=== PATIENT | male | born 1950 | race African-American/Black ===

== ENCOUNTER → 2016-07-30 | Outpatient (CLI) | payer MEDICARE, OTHER | LOC: RAD 11:06 | PROVIDERS: ATTEND Internal Medicine | DX: M25.511 Pain in right shoulder (principal) ==

== ENCOUNTER 2016-10-14 07:50 | Day surgery (SDC) | payer MEDICARE, OTHER ==
[2016-10-07 10:01] LABS: ABSOLUTE EOSINOPHILS # (AUTO) 0.1 10^3/uL (0.0-0.6); ABSOLUTE LYMPHOCYTES (AUTO) 1.5 10^3/uL (0.5-4.7); ABSOLUTE MONOCYTES (AUTO) 0.6 10^3/uL (0.1-1.4); ABSOLUTE NEUT (AUTO) 4.1 10^3/uL (1.7-8.2); BASOPHILS % (AUTO) 0.4 % (0-2); EOSINOPHILS % (AUTO) 2.1 % (0-6); HEMATOCRIT 32.2 % (37.9-51.0); HEMOGLOBIN 10.4 g/dL (13.5-17.0); LYMPHOCYTES % (AUTO) 23.1 % (13-45); MEAN CORPUSCULAR HEMOGLOBIN 24.8 pg (27.0-33.4); MEAN CORPUSCULAR HGB CONC 32.2 g/dL (32.0-36.0); MEAN CORPUSCULAR VOLUME 77 fl (80-97); MONOCYTES % (AUTO) 10.1 % (3-13); RED BLOOD COUNT 4.19 10^6/uL (4.35-5.55); SEGMENTED NEUTROPHILS % (AUTO) 64.3 % (42-78); WHITE BLOOD COUNT 6.3 10^3/uL (4.0-10.5)
[2016-10-07 10:16] LABS: ANION GAP 12 (5-19); BLOOD UREA NITROGEN 9 mg/dL (7-20); CALCIUM 9.3 mg/dL (8.4-10.2); CARBON DIOXIDE 28 mmol/L (22-30); CHLORIDE 104 mmol/L (98-107); CREATININE RESULT 1.14 mg/dL (0.52-1.25); GLUCOSE 129 mg/dL (75-110); POTASSIUM 3.9 mmol/L (3.6-5.0); SODIUM 144.1 mmol/L (137-145)
[2016-10-07 11:39] LABS: APPEARANCE,URINE CLEAR; BILIRUBIN,URINE NEGATIVE (NEGATIVE); GLUCOSE, URINE NEGATIVE (NEGATIVE); KETONES,URINE NEGATIVE (NEGATIVE); LEUKOCYTE ESTERASE,URINE NEGATIVE (NEGATIVE); NITRITE,URINE NEGATIVE (NEGATIVE); PROTEIN,URINE NEGATIVE (NEGATIVE); URINE SPECIFIC GRAVITY 1.011; UROBILINOGEN,URINE NEGATIVE mg/dL (<2.0)
--- NOTE | 2016-10-07 15:46 | EKG REPORT ---
SEVERITY:- ABNORMAL ECG - ATRIAL FLUTTER, A-RATE 319 NONSPECIFIC T ABNORMALITIES, INFERIOR LEADS : Confirmed by: Keily Resendez MD 07-Oct-2016 15:45:25
[~2016-10-14 07:50] MED LIST: CEFAZOLIN 2 GM/D5W RTU 2 GM/50 ML RTUPB IV PRN; LACTATED RINGERS 1000 ML IV PRN; LIDOCAINE 0.5% INJ-PF (5 MG/ML) 50 ML SDV SUBCUT PRN
[2016-10-14] MEDS ORDERED: BUPIVACAINE HCL 0.25 % INJ/PF (2.5 MG/1 ML) 30 ML VIAL ONE (08:19)
[2016-10-14] MEDS ORDERED: EPINEPHRINE INJ/PF 1 MG/1 ML AMPULE ONE (08:19)
[2016-10-14] MEDS ORDERED: MORPHINE SULFATE 10 MG/ML INJ ONE (09:19)
[2016-10-14] MEDS ORDERED: FENTANYL CITRATE INJ/PF 250 MCG/5 ML AMPULE ONE (11:08)
[2016-10-14] MEDS ORDERED: MIDAZOLAM 2 MG/2 ML INJ ONE (11:09)
[2016-10-14] MEDS ORDERED: IBUPROFEN INJ 800 MG/8 ML VIAL IV ONE (11:09)
[2016-10-14] MEDS ORDERED: PROPOFOL INJ 200 MG/20 ML VIAL IV ONE (11:09)
[2016-10-14] MEDS ORDERED: DEXMEDETOMIDINE INJ 80 MCG/20 ML VIAL IV ONE (11:09)
[2016-10-14] MEDS ORDERED: EPHEDRINE SULFATE INJ 50 MG/1 ML AMPULE ONE (11:09)
[2016-10-14] MEDS ORDERED: ONDANSETRON HCL INJ/PF 4 MG/2 ML SDV IV PRN (12:43)
[2016-10-14] MEDS ORDERED: FENTANYL CITRATE INJ/PF 100 MCG/2 ML AMPUL IV PRN ×6 (12:43→15:04)
[2016-10-14] MEDS ORDERED: MORPHINE SULFATE 10 MG/ML INJ IV PRN ×2 (12:43→15:04)
[2016-10-14] MEDS ORDERED: PROMETHAZINE HCL INJ 25 MG/1 ML VIAL IV PRN ×4 (12:43→15:04)
[2016-10-14] MEDS ORDERED: DIPHENHYDRAMINE HCL 50 MG/ML VIAL IV PRN ×2 (12:43→15:04)
[2016-10-14] MEDS ORDERED: MEPERIDINE HCL/PF INJ 25 MG/1 ML DISP.SYRIN IV PRN ×2 (12:43→15:04)
[2016-10-14] MEDS ORDERED: OXYCODONE-ACETAMINOPHEN 5-325 MG TABLET PO PRN ×4 (12:43→15:04)
--- NOTE | 2016-10-14 14:16 | PDOC DISCHARGE SUMMARY ---
Discharge Summary (SDC) - Discharge Final Diagnosis: Status post right shoulder labral debridement and decompression with subpectoralis biceps tenodesis Date of Surgery: 10/14/16 Discharge Date: 10/14/16 Condition: Good Forms: ASU Anesthesia D/C Instruction, Discharge POC-Surgical Service Treatment or Instructions: Patient is instructed to follow up in 10-14 days. Patient instructed to remove dressing in 4 days then can shower and apply Band- Aids as needed. Patient to wear sling for comfort but okay to remove for shower and pendulum exercises. Pendulum exercises are instructed to be done 3 times a day ideally with breakfast, lunch, dinners and showers. Patient instructed to call if there is any signs of redness or drainage fevers or chills. Prescriptions: Oxycodone HCl/Acetaminophen [Percocet 5-325 mg Tablet] 1 - 2 tab PO ASDIR PRN # 60 tablet PRN Reason: Referrals: KESHA RODGERS MD [ACTIVE STAFF] - Discharge Diet: As Tolerated Respiratory Treatments at Home: Deep Breathing/Coughing Discharge Activity: No Driving, No Lifting/Push/Pulling Report the Following to Your Physician Immediately: Shortness of Breath, Vomiting, Fever over 101 Degrees, Unusual Bleeding, Redness, Swelling, Warmth, Drainage-Yellow, Drainage-Green, Drainage-Foul Smelling, Numbness, Seizure
[2016-10-14] MEDS ORDERED: SUCCINYLCHOLINE CHLORIDE INJ 200 MG/10 ML VIAL ONE (14:22)
[2016-10-14] MEDS ORDERED: ONDANSETRON HCL INJ/PF 4 MG/2 ML SDV ONE (14:22)
[2016-10-14] MEDS ORDERED: LIDOCAINE 2% INJ-PF (20 MG/ML) 10 ML AMPUL ONE (14:22)
[2016-10-14] MEDS ORDERED: METOCLOPRAMIDE HCL INJ/PF 10 MG/2 ML SDV ONE (14:22)
[2016-10-14] MEDS ORDERED: GLYCOPYRROLATE INJ 0.4 MG/2 ML VIAL ONE (14:22)
[2016-10-14] MEDS ORDERED: DEXAMETHASONE SOD PHOSPHATE INJ 4 MG/1 ML VIAL ONE (14:22)
--- NOTE | 2016-10-14 14:25 | Operative Report ---
Operative Report DATE OF SURGERY: 10/14/16 PREOPERATIVE DIAGNOSIS: Right rotator cuff tear and SLAP tear POSTOPERATIVE DIAGNOSIS: Right impingement syndrome no rotator cuff tear with labral degenerative tearing and SLAP tear OPERATION: Right shoulder arthroscopy with limited debridement, decompression with acromioplasty, subpectoralis biceps tenodesis SURGEON: KESHA PHAM ANESTHESIA: GA TISSUE REMOVED OR ALTERED: None COMPLICATIONS: None ESTIMATED BLOOD LOSS: 10mL INTRAOPERATIVE FINDINGS: As above PROCEDURE: DESCRIPTION OF PROCEDURE: Patient was brought to the operating room placed in supine position. After successfully induced and intubated the patient patient was placed in the beachchair position the head and endotracheal tube was secured appropriately. The right shoulder was prepped and draped in a normal surgical fashion. A timeout was done identifying the right shoulder as the correct site. After inflating the glenohumeral joint with sterile saline solution an 11 blade was used to establish the posterior portal. The arthroscope was introduced and return of fluid was seen showing that we successfully penetrated the glenohumeral joint. With the use of spinal needle we're able to moises the anterior portal and using an 11 blade able to establish anterior portal. A cannula was introduced through the anterior portal. At this point diagnostic scope was done. Patient did not have a rotator cuff tear. He did have fraying of the long head of biceps attachment with a small SLAP tear. Articular cartilage was intact. Patient has significant degenerative tearing of the anterior labrum and posterior labrum. No loose bodies noted. At this point I used a 4.0 mm shaver to debride my degenerative labral tear. I used a arthroscopic scissors to do my tenotomy of the long head of biceps. I use my probe to confirm no tears of the rotator cuff. At this point I redirected my scope to subacromial space and established a lateral portal. I used radiofrequency ablator and shaver to do my fall bursectomy and delineate the rotator cuff and the acromion. Probe was used to show that there was no bursal sided partial tear of the rotator cuff. The 5.5 mm bur and did a acromioplasty. Once I was satisfied I took final pictures and then proceeded to remove fluid and instruments. I turned my attention to the subpectoralis biceps tenodesis by doing a 2 inch incision at the anterior aspect of the arm just adjacent to the axillary fold. Dissection was taken down with the Metzenbaum scissors after doing initial incision. Hemostasis was obtained with the Bovie. Was exposed the fascial tissue over the biceps which I incised with the Metzenbaum scissors and then split proximal and 1 distally with my finger. I used a 90 clamp to capture the muscular tendinous junction of the biceps and pulled it through my incision. The tenotomized tendon was exposed and then I proceeded to secure the tendon at the muscular tendinous junction 2 cm distal to it with a fiber loop. After cutting the needle off I used both strands and pass it through the titanium button curing the biceps. I used a spade tip guidepin and drill the anterior cortex just inferior to the pectoralis insertion. Once I drilled a removed and then was able to trace to titanium button with the fiber loops and it. I flipped the button and then secured the biceps onto the anterior surface of the humerus. I then proceeded to throw some half hitch knots to secure the tendon further. I used scissors to cut the remaining strand. Once I had finished with my fixation I proceeded to close the wound with 0 Vicryl and 3-0 nylon. I proceeded to close my portal sites with 3-0 nylon. Xeroform 4 x 4 dressing followed by ABDs pads and Medipore tape was applied. Patient was placed in a sling and returned to supine position where he was successfully extubated and taken to PACU in stable condition.
[2016-10-14] MEDS ORDERED: FENTANYL CITRATE INJ/PF 100 MCG/2 ML AMPUL ONE (14:39)
[2016-10-14] MEDS ORDERED: OXYCODONE-ACETAMINOPHEN 5-325 MG TABLET ONE (15:27)
[2016-10-14 17:16] VITALS: BP 143/81
--- NOTE | 2016-10-19 13:27 | EKG REPORT ---
SEVERITY:- OTHERWISE NORMAL ECG - SINUS RHYTHM BORDERLINE LEFT AXIS DEVIATION : Confirmed by: Keily Resendez MD 19-Oct-2016 13:25:57
== END 2016-10-14 17:10 | disposition home or self-care (01) ==
LOC: OROUT 07:50
PROVIDERS: ATTEND Orthopaedic Surgery
PROC: 0LM30ZZ Reattachment of Right Upper Arm Tendon, Open Approach (ICD-10-PCS; 2016-10-14)
PROC: 0RBJ4ZZ Excision of Right Shoulder Joint, Percutaneous Endoscopic Approach (ICD-10-PCS; principal; 2016-10-14 10:00)
DX: S43.431A Superior glenoid labrum lesion of right shoulder, initial encounter (principal); S46.011A Strain of muscle(s) and tendon(s) of the rotator cuff of right shoulder, initial encounter; X58.XXXA Exposure to other specified factors, initial encounter; M75.41 Impingement syndrome of right shoulder; E11.9 Type 2 diabetes mellitus without complications; G47.33 Obstructive sleep apnea (adult) (pediatric); E11.49 Type 2 diabetes mellitus with other diabetic neurological complication; E78.00 Pure hypercholesterolemia, unspecified; N40.0 Benign prostatic hyperplasia without lower urinary tract symptoms; E66.01 Morbid (severe) obesity due to excess calories; F20.9 Schizophrenia, unspecified; Z79.82 Long term (current) use of aspirin; Z79.899 Other long term (current) drug therapy; Z68.28 Body mass index [BMI] 28.0-28.9, adult; Z79.4 Long term (current) use of insulin
CPT/HCPCS: 93005 ×2; 36415 ×2; 82962; 84132; 85025; 80048; 81001; 71020; 93010 ×2; 29822; 24340; C1713; J2250; J1100; J3490 ×3; J0171; J3010 ×2; J2765; J2270; A9270; J0330; J2405; J2704; J0690; 1630; J1741

== ENCOUNTER → 2016-12-08 | Outpatient (CLI) | payer MEDICARE, OTHER ==
[2016-12-11 12:39] LABS: PROSTATE SPECIFIC ANTIGEN 4.7 ng/mL (0.0-4.0); PSA % FREE 4.3 % (.); PSA FREE 0.2 ng/mL
== END ==
LOC: OD 14:02
PROVIDERS: ATTEND Urology
DX: R97.20 Elevated prostate specific antigen [PSA] (principal)
CPT/HCPCS: 36415; 84154

== ENCOUNTER → 2017-03-31 | Outpatient (CLI) | payer MEDICARE, OTHER ==
--- NOTE | 2017-03-31 17:40 | RADIOLOGY REPORT (SQ) ---
EXAM DESCRIPTION: HIP LEFT AP/LATERAL COMPLETED DATE/TIME: 03/31/2017 5:30 pm REASON FOR STUDY: PAIN IN LEFT HIP M25.552 PAIN IN LEFT HIP COMPARISON: October 2015 NUMBER OF VIEWS: Two views. TECHNIQUE: AP pelvis and additional frog-leg view of the left hip. LIMITATIONS: None. FINDINGS: MINERALIZATION: Normal. LEFT HIP: No fracture or dislocation. No worrisome bone lesions. RIGHT HIP: No fracture or dislocation. No worrisome bone lesions. PUBIS AND ISCHIUM: No fracture. PELVIS: There is some bony deformity of the right iliac crest laterally which may be related to previ ous trauma. This is unchanged from the previous study SACRUM: No fracture or dislocation. No worrisome bone lesions. LOWER LUMBAR SPINE: No fracture or dislocation. No worrisome bone lesions. No significant disc disea se. SOFT TISSUES: No findings. OTHER: No other significant finding. IMPRESSION: No significant findings in the left hip. Other findings as noted above. TECHNICAL DOCUMENTATION: JOB ID: [id number] [employer]- All Rights Reserved
== END ==
LOC: OD 17:09
PROVIDERS: ATTEND Internal Medicine
DX: M25.552 Pain in left hip (principal)

== ENCOUNTER 2017-04-01 06:52 | Day surgery (SDC) | payer MEDICARE, OTHER ==
[~2017-04-01 06:52] MED LIST changes: +CEFAZOLIN 1 GM/D5W RTU 1 GM/50 ML RTUPB IV PRN; -CEFAZOLIN 2 GM/D5W RTU 2 GM/50 ML RTUPB IV PRN; -LACTATED RINGERS 1000 ML IV PRN; -LIDOCAINE 0.5% INJ-PF (5 MG/ML) 50 ML SDV SUBCUT PRN; +RINGERS SOLUTION,LACTATED 1,000 ML IV PRN
[2017-04-01 07:23] LABS: HEMATOCRIT 34.3 % (37.9-51.0); HEMOGLOBIN 11.1 g/dL (13.5-17.0); MEAN CORPUSCULAR HEMOGLOBIN 23.9 pg (27.0-33.4); MEAN CORPUSCULAR HGB CONC 32.5 g/dL (32.0-36.0); MEAN CORPUSCULAR VOLUME 74 fl (80-97); RED BLOOD COUNT 4.66 10^6/uL (4.35-5.55); RED CELL DISTRIBUTION WIDTH 18.6 % (11.5-14.0); WHITE BLOOD COUNT 9.3 10^3/uL (4.0-10.5)
[2017-04-01 07:43] LABS: ANION GAP 12 (5-19); BLOOD UREA NITROGEN 14 mg/dL (7-20); CALCIUM 10.4 mg/dL (8.4-10.2); CARBON DIOXIDE 25 mmol/L (22-30); CHLORIDE 107 mmol/L (98-107); CREATININE RESULT 1.08 mg/dL (0.52-1.25); GLUCOSE 109 mg/dL (75-110); POTASSIUM 3.8 mmol/L (3.6-5.0); SODIUM 144.3 mmol/L (137-145)
[2017-04-01] MEDS ORDERED: LIDOCAINE 1% INJ-PF (10 MG/ML) 30 ML SDV ONE (08:17)
[2017-04-01] MEDS ORDERED: PROMETHAZINE HCL INJ 25 MG/1 ML VIAL IV PRN ×2 (09:17)
[2017-04-01] MEDS ORDERED: MORPHINE SULFATE 10 MG/ML INJ IV PRN (09:17)
[2017-04-01] MEDS ORDERED: OXYCODONE-ACETAMINOPHEN 5-325 MG TABLET PO PRN ×2 (09:17)
[2017-04-01] MEDS ORDERED: MEPERIDINE HCL/PF INJ 25 MG/1 ML DISP.SYRIN IV PRN (09:17)
[2017-04-01] MEDS ORDERED: DIPHENHYDRAMINE HCL 50 MG/ML VIAL IV PRN (09:17)
[2017-04-01] MEDS ORDERED: FENTANYL CITRATE INJ/PF 100 MCG/2 ML AMPUL IV PRN ×3 (09:17)
[2017-04-01] MEDS ORDERED: MICROFIBRILLAR COLLAGEN 1 GM PACK ONE (09:49)
--- NOTE | 2017-04-01 09:52 | EKG REPORT ---
SEVERITY:- OTHERWISE NORMAL ECG - SINUS RHYTHM BORDERLINE LEFT AXIS DEVIATION : Confirmed by: Gladys Vincent 01-Apr-2017 09:51:56
--- NOTE | 2017-04-01 10:11 | PDOC DISCHARGE SUMMARY ---
Discharge Summary (SDC) - Discharge Final Diagnosis: Recurrent fibrolipomatous mass posterior neck Date of Surgery: 04/01/17 Discharge Date: 04/01/17 Condition: Good Forms: ASU Anesthesia D/C Instruction, Discharge POC-Surgical Service Prescriptions: Ketorolac Tromethamine [Toradol 10 mg Tablet] 10 mg PO Q6HP PRN #20 tablet PRN Reason: Referrals: EUGENE DEL CASTILLO MD [ACTIVE STAFF] - 04/14/17 1:15 pm Discharge Diet: As Tolerated Discharge Activity: Activity As Tolerated Home Care Assistance: None Needed Report the Following to Your Physician Immediately: Shortness of Breath, Increase in Pain, Fever over 101 Degrees
--- NOTE | 2017-04-01 10:16 | Operative Report ---
Operative Report DATE OF SURGERY: 04/01/17 PREOPERATIVE DIAGNOSIS: Recurrent fibrolipoma posterior neck POSTOPERATIVE DIAGNOSIS: Same OPERATION: Excision of recurrent fibrolipoma of the posterior neck with primary closure SURGEON: EUGENE DEL CASTILLO ANESTHESIA: LMAC TISSUE REMOVED OR ALTERED: Fibrofatty lipoma posterior neck COMPLICATIONS: None ESTIMATED BLOOD LOSS: 25 cc INTRAOPERATIVE FINDINGS: Below PROCEDURE: The patient was seen in the preop holding area where the posterior neck mass was marked. The patient was then taken to the operating room where LMAC anesthesia was induced. He was placed in the left lateral decubitus position right side up, right arm supported, and head and neck supported. Posterior neck was exposed, clipped of hair then prepped and draped with Betadine Surgical plan and surgical timeout conducted. Attention was directed to the fire risk in this particular case. The findings were significant for a scar approximately 2 cm long over the mid posterior neck which was directly over the recurrent mass. The skin was anesthetized with quarter percent Marcaine. The previous scar was incised with extension laterally approximately 1/2 cm for full length of approximately 3 cm. Using a combination of sharp and electrocautery dissection, the recurrent mass was excised. When Bovie was used, the oxygen was completely off to the patient. The mass was a poorly circumscribed fibrotic recurrent lipoma. This was by no means an exhaustive subcutaneous dissection, but a gross debulking of the recurrent fibrolipoma. The specimen was ultimately passed off to pathology for permanent analysis. Small vessels were cauterized as encountered. Hemostasis was achieved. Avitene agent was suspended in saline and placed into the recesses of the wound , and the previous scar excised longitudinally. The wound was closed with 3-0 Vicryl benzoin Steri-Strips. Compression dressing applied. Patient tolerated the procedure well, and was taken to recovery room in stable condition.
[2017-04-01] MEDS ORDERED: DEXAMETHASONE SOD PHOSPHATE INJ 4 MG/1 ML VIAL ONE (10:31)
[2017-04-01] MEDS ORDERED: LIDOCAINE 2% INJ-PF (20 MG/ML) 10 ML AMPUL ONE (10:31)
[2017-04-01] MEDS ORDERED: ONDANSETRON HCL INJ/PF 4 MG/2 ML SDV ONE (10:31)
[2017-04-01 12:24] VITALS: BP 127/67
== END 2017-04-01 12:10 | disposition home or self-care (01) ==
LOC: OROUT 06:52
PROVIDERS: ATTEND Surgery
PROC: 0JB50ZZ Excision of Left Neck Subcutaneous Tissue and Fascia, Open Approach (ICD-10-PCS; 2017-04-01)
PROC: 0JX Subcutaneous Tissue and Fascia, Transfer (ICD-10-PCS; principal; 2017-04-01 09:45)
DX: D17.0 Benign lipomatous neoplasm of skin and subcutaneous tissue of head, face and neck (principal); L91.0 Hypertrophic scar; E78.00 Pure hypercholesterolemia, unspecified; E11.9 Type 2 diabetes mellitus without complications; G47.30 Sleep apnea, unspecified; I25.10 Atherosclerotic heart disease of native coronary artery without angina pectoris; I10 Essential (primary) hypertension; E66.9 Obesity, unspecified; J45.909 Unspecified asthma, uncomplicated; Z79.899 Other long term (current) drug therapy; Z88.2 Allergy status to sulfonamides; Z88.6 Allergy status to analgesic agent; Z88.8 Allergy status to other drugs, medicaments and biological substances; I25.2 Old myocardial infarction; Z79.82 Long term (current) use of aspirin; Z79.4 Long term (current) use of insulin; Z79.84 Long term (current) use of oral hypoglycemic drugs; Z68.41 Body mass index [BMI] 40.0-44.9, adult
CPT/HCPCS: 36415; 82962; 85027; 80048; 88304 ×2; 93005; 93010; 11424; J0690; J1100; J3490 ×3; J2405; 300

== ENCOUNTER → 2017-04-07 | Outpatient (CLI) | payer MEDICARE, OTHER ==
--- NOTE | 2017-04-07 14:35 | RADIOLOGY REPORT (SQ) ---
EXAM DESCRIPTION: MRI LUMBAR SPINE WITHOUT COMPLETED DATE/TIME: 04/07/2017 1:20 pm REASON FOR STUDY: SPINAL STENOSIS, LUMBAR REGION W/NEUROGENIC CLAUDICATION (M48.062) M48.062 SPINAL STENOSIS, LUMBAR REGION WITH NEUROGENIC LINO COMPARISON: Left hip films 03/31/2017 CT abdomen pelvis 06/17/2014 TECHNIQUE: Sagittal and Axial imaging includes T1, T2, STIR and gradient echo sequences. Coronal T2/ HASTE imaging. LIMITATIONS: None. FINDINGS: VISUALIZED UPPER ABDOMEN: Mild nonspecific retroperitoneal adenopathy, similar compared to CT exam 06/17/2014. SEGMENTATION: No transitional anatomy. The lowest well-developed disc space is labeled L5-S1. ALIGNMENT: Anatomic. VERTEBRAE: Intact. BONE MARROW: Normal. No marrow replacement or reactive changes. DISC SIGNAL: Decreased T2 weighted intervertebral disc signal at L4-5. POSTERIOR ELEMENTS: Generally intact. No pars defect evident. HARDWARE: None in the spine. CORD AND CONUS: Normal in size and signal intensity. Conus at the L1 level. SOFT TISSUES: No aortic aneurysm seen. No bulky retroperitoneal adenopathy or mass. No paraspinal mas s or fluid. T11-12: At the upper edge of the field of view. There is no central or foraminal stenosis. Mild bi lateral facet hypertrophy. T12-L1: Broad diffuse posterior disc bulging is present with bilateral facet hypertrophy. Note cent ral or foraminal encroachment. L1-L2: Moderate bilateral facet hypertrophy. No significant posterior disc bulging. No right forami nal narrowing. Mild left foraminal narrowing from facet hypertrophy. L2-L3: Minimal posterior disc bulging, moderate bilateral facet and ligament hypertrophy are present. No central stenosis. Mild bilateral inferior foraminal narrowing without exiting L2 nerve root imp ingement. L3-L4: Broad diffuse posterior disc bulging is present with bulky bilateral facet and ligament hypert rophy. There is a left paracentral/ proximal foraminal disc herniation with superior migration of th e extruded fragment. This flattens the thecal sac at the takeoff of the left L3 nerve root in the la teral recess, before it enters the neural foramen. Extruded to disc fragment is best shown on sagitt al T2 image 9 and 10, and axial T1 weighted image 9 through 11. Elsewhere at L3-4, there is mild central canal stenosis. Mild right foraminal narrowing without righ t exiting L3 nerve root impingement. Moderate to high-grade proximal left L3-4 foraminal narrowing f rom extruded disc fragment, with partial effacement of the fat around the exiting left L3 nerve root. L4-L5: Broad diffuse posterior disc bulge and bony spurring and moderate bilateral facet and ligament hypertrophy along with dorsal epidural fat causes moderate central canal stenosis. There is effacem ent of the CSF around the lumbar nerve roots on axial T2 image 25. Mild bilateral inferior foraminal narrowing is present without exiting L4 nerve root impingement. L5-S1: Broad diffuse posterior disc bulge and bony spurring right greater than left, moderate bilater al facet hypertrophy. Mild central canal narrowing. There is narrowing of the right lateral recess containing the proximal right S1 nerve root best shown on axial T2 image 31. Elsewhere at L5-S1, mild right inferior foraminal narrowing is present without exiting right L5 nerve root impingement. No significant left L5-S1 foraminal narrowing. SACRUM: Visualized upper sacrum intact. OTHER: No other significant findings. IMPRESSION: Left paracentral/proximal foraminal disc herniation with superior migration of the extru ded fragment at L3-4. This flattens the proximal left L3 nerve root in the lateral recess as it take s off from the thecal sac. Moderate central canal narrowing at L4-5, mild central canal stenosis at L3-4 and L5-S1. TECHNICAL DOCUMENTATION: JOB ID: [id number] [employer]- All Rights Reserved
== END ==
LOC: RAD 12:25
PROVIDERS: ATTEND Internal Medicine
DX: M48.062 Spinal stenosis, lumbar region with neurogenic claudication (principal)
CPT/HCPCS: 72148

== ENCOUNTER → 2017-08-10 | Outpatient (CLI) | payer MEDICARE, OTHER ==
[~2017-08-10] MED LIST changes: +AMINOPHYLLINE INJ/PF 250 MG/10 ML SDV IV ONE; -CEFAZOLIN 1 GM/D5W RTU 1 GM/50 ML RTUPB IV PRN; +REGADENOSON INJ 0.4 MG/5 ML DISP.SYRIN IV ONE; -RINGERS SOLUTION,LACTATED 1,000 ML IV PRN
--- NOTE | 2017-08-10 13:00 | DRAGON STRESS TEST REPORT ---
INTRAVENOUS LEXISCAN CARDIOLITE STRESS TEST USING SINGLE PHOTON EMMISION COMPUTERIZED TOMOGRAPHIC. DATE OF PROCEDURE: August 10, 2017, INDICATION : Chest pain CARDIAC RISK FACTORS: Diabetes, hypertension RESTING EKG: Sinus rhythm, no baseline ST-T wave changes noted STRESS EKG: No significant changes noted with LexiScan bolus REASON FOR TERMINATION: Protocol. PROCEDURE REPORT: Baseline heart rate 74 with blood pressure of 177/83. Patient had no significant complaints. Heart rate at 2 minutes post bolus 86 with a blood pressure of 166/70. 3 minutes post bolus heart rate 86 with blood pressure of 166/70. No significant EKG changes were noted. Patient had no significant complaints during the procedure or postprocedure. Patient injected with Aminophyllin 75 mg at 3 minutes or later after Lexiscan bolus. CONCLUSIONS: Normal EKG and hemodynamic response to IV LexiScan. NUCLEAR DATA: At rest the patient was given 15.24 millicuries of technetium 99 sestamibi injected intravenously. As per protocol rest gated SPECT images were obtained. On day of stress test, the patient was given intravenous LexiScan at a dose of 0.4 mg in 5 mL intravenously, followed by flush with normal saline. Subsequently the stress dose of 45.1 millicuries of technetium 99 sestamibi was injected intravenously. As per protocol stress gated images were obtained. NUCLEAR INTERPRETATION: Both raw and processed data were used for interpretation. Visual, qualitative, computer-generated quantitative data was used. There was good myocardial uptake of technetium compound. Motion artifact and soft tissue attenuations were noted. Increased visceral uptake was noted. Mild decreased uptake noted in the mid inferior wall and stress imaging consistent with probable mild inferior ischemia. Confidence is somewhat low since patient had a lot of diaphragmatic attenuation and increased visceral uptake which did interfere with accurate interpretation. No definitive areas of fixed perfusion defect or scars noted. EKG gated imaging showed LV EF at 58 %, rest and stress gated EF similar visually. T. I D. ratio was 1.24. Lung heart ratio noted to be within normal limits 0.31. No significant extracardiac and abnormal radiotracer activities were noted. RV free wall uptake was noted to be WNL. IMPRESSION: Also refer to comments under nuclear interpretation. Also test results needs to be interpreted in the context of pretest probability. 1. Mild decreased uptake noted in the mid inferior wall and stress imaging consistent with probable mild inferior ischemia. Confidence is somewhat low since patient had a lot of diaphragmatic attenuation and increased visceral uptake which did interfere with accurate interpretation 2. There is no definitive scintigraphic evidence of myocardial infarction/scar. 3. EKG gated imaging shows left ventricular ejection fraction of approx. 58 %. 4. Clinical correlation requested as occasionally single vessel disease or balanced ischemia could be missed. In approximately 10% of the cases Lexiscan may not cause adequate vasodilatory stress. RECOMMENDATIONS: Aggressive risk factor modification and medical management. Further evaluation may be needed if continued symptoms or other high risk indicators are noted on clinical evaluation. Close cardiology follow-up is also recommended. Clinical correlation with echocardiogram derived ejection fraction. Inability to exercise by itself can lead to increased cardiovascular event risks. Consider cardiology consultation and or follow-up if clinically indicated. I am available for cardiology evaluation and consultation if requested by the toll line mechanic, unless patient already has a broadcast designer. MIRTHA
== END ==
LOC: RAD 07:13
PROVIDERS: ATTEND Internal Medicine
DX: R07.89 Other chest pain (principal); E11.9 Type 2 diabetes mellitus without complications; I10 Essential (primary) hypertension
CPT/HCPCS: 93017; 78452; A9500; J2785; J0280; Q9969

== ENCOUNTER 2017-08-22 09:19 | Emergency (ER) | payer MEDICARE, OTHER ==
[2017-08-22 09:35] VITALS: BP 181/70
--- NOTE | 2017-08-22 10:05 | ER Document Report ---
ED General - General Chief Complaint: High Blood Sugar Stated Complaint: BLOOD PRESSURE CONCERN Time Seen by Provider: 08/22/17 10:01 Notes: Patient states he was at a physician's office today for a pre-procedure evaluation. He states he was told that his blood pressure was high and that he needed to come to the emergency department. He states he has no symptoms. No numbness tingling weakness or paresthesias. No dizziness or blurry vision. He states that he feels "fine". He states he is due to take all of his blood pressure medications at 10 AM and has not yet taken them for the day. Symptoms are mild. Nothing makes them better or worse. There is no radiation of the symptoms. TRAVEL OUTSIDE OF THE [place] IN LAST 30 DAYS: No - Related Data Allergies/Adverse Reactions: cholera vaccine Allergy (Verified 08/22/17 09:21) Unknown reaction ibuprofen [From Motrin] Allergy (Verified 08/22/17 09:21) Edema, Throat Swelling lisinopril [Lisinopril] Allergy (Verified 08/22/17 09:21) Edema, Throat Swelling Sulfa (Sulfonamide Antibiotics) Allergy (Verified 08/22/17 09:21) Edema, throat swelling typhoid vaccine Allergy (Verified 08/22/17 09:21) Unknown reaction Past Medical History - General Information source: Patient - Social History Smoking Status: Never Smoker Frequency of alcohol use: Occasional Drug Abuse: None Family History: Reviewed & Not Pertinent Patient has suicidal ideation: No Patient has homicidal ideation: No - Past Medical History Cardiac Medical History: Reports: Hx Coronary Artery Disease - CARDIAC CATH X6, Hx Heart Attack - X1 1996, Hx Hypertension - ON MEDICATION Pulmonary Medical History: Reports: Hx Asthma, Hx Bronchitis, Hx COPD Denies: Hx Pneumonia, Hx Tuberculosis Neurological Medical History: Denies: Hx Cerebrovascular Accident, Hx Seizures Renal/ Medical History: Denies: Hx Peritoneal Dialysis Musculoskeltal Medical History: Reports Hx Arthritis Psychiatric Medical History: Reports: Hx Depression - Immunizations Hx Diphtheria, Pertussis, Tetanus Vaccination: Yes Hx Pneumococcal Vaccination: 10/08/13 Review of Systems - Review of Systems Constitutional: denies: Chills, Fever, Malaise, Weakness EENT: denies: Blurred vision, Double vision Cardiovascular: denies: Chest pain, Palpitations Neurological/Psychological: denies: Weakness, Gait changes, Loss of power, Headaches, Speech impairment, Numbness, Tingling Physical Exam - Vital signs Vitals: Temp Pulse Resp BP Pulse Ox 98.2 F 67 20 181/70 H 97 08/22/17 09:34 08/22/17 09:34 08/22/17 09:34 08/22/17 09:34 08/22/17 09:34 Interpretation: Hypertensive - General General appearance: Appears well, Alert In distress: None - HEENT Head: Normocephalic, Atraumatic Eyes: Normal Pupils: PERRL - Respiratory Respiratory status: No respiratory distress Chest status: Nontender Breath sounds: Normal Chest palpation: Normal - Cardiovascular Rhythm: Regular Heart sounds: Normal auscultation Murmur: No - Abdominal Inspection: Normal Distension: No distension Bowel sounds: Normal Tenderness: Nontender Organomegaly: No organomegaly - Back Back: Normal, Nontender - Extremities General upper extremity: Normal inspection, Nontender, Normal color, Normal ROM , Normal temperature General lower extremity: Normal inspection, Nontender, Normal color, Normal ROM , Normal temperature, Normal weight bearing. No: Kayla's sign - Neurological Neuro grossly intact: Yes Cognition: Normal Orientation: AAOx4 [place] Coma Scale Eye Opening: Spontaneous Freddy Coma Scale Verbal: Oriented Freddy Coma Scale Motor: Obeys Commands Freddy Coma Scale Total: 15 Speech: Normal Cranial nerves: Normal Cerebellar coordination: Normal Motor strength normal: LUE, RUE, LLE, RLE Additional motor exam normals: Equal supervisor cook room. No: Pronator drift Sensory: Normal - Psychological Associated symptoms: Normal affect, Normal mood - Skin Skin Temperature: Warm Skin Moisture: Dry Skin Color: Normal Course - Vital Signs Vital signs: Temp Pulse Resp BP Pulse Ox 98.2 F 67 20 181/70 H 97 08/22/17 09:34 08/22/17 09:34 08/22/17 09:34 08/22/17 09:34 08/22/17 09:34 Discharge - Discharge Clinical Impression: Uncontrolled hypertension Condition: Stable Disposition: HOME, SELF-CARE Instructions: High Blood Pressure, Requiring Treatment ([facility]) Forms: Elevated Blood Pressure
== END 2017-08-22 10:08 | disposition home or self-care (01) ==
LOC: ER 09:19
DX: I10 Essential (primary) hypertension (principal); I25.10 Atherosclerotic heart disease of native coronary artery without angina pectoris; J44.9 Chronic obstructive pulmonary disease, unspecified; I25.2 Old myocardial infarction; Z88.2 Allergy status to sulfonamides
CPT/HCPCS: 99283

== ENCOUNTER 2017-11-10 09:43 | Day surgery (SDC) | payer MEDICARE, OTHER ==
[~2017-11-10 09:43] MED LIST changes: -AMINOPHYLLINE INJ/PF 250 MG/10 ML SDV IV ONE; +CHONDR SU A NA/HYALUR INTRAOC KIT (SURGICARE) ONE; +EPINEPHRINE INJ/PF 1 MG/1 ML AMPULE ONE; +KETOROLAC TROMETHAMINE 0.45% 4 DROP/0.4 ML DROPERETTE OD PRN; +LIDOCAINE 1% INJ-PF (10 MG/ML) 30 ML SDV ONE; +MIDAZOLAM 2 MG/2 ML INJ ONE; -REGADENOSON INJ 0.4 MG/5 ML DISP.SYRIN IV ONE
[2017-11-10] MEDS: TETRACAINE HCL 0.5% OPH SOLN 2 ML OD PRN ×3 (10:02→10:24)
[2017-11-10] MEDS: CYCLOPENTOLATE 0.2%/PHENYLEPHRINE 1% OPH SOLN 2 ML OD PRN ×3 (10:03→10:21)
[2017-11-10] MEDS: TROPICAMIDE 1% OPH SOLN 3 ML OD PRN ×3 (10:03→10:21)
[2017-11-10] MEDS: BESIFLOXACIN HCL 0.6% OPH SUSP 5 ML BOTTLE OD PRN ×4 (10:04→10:51)
--- NOTE | 2017-11-10 15:04 | [facility] DISCHARGE SUMMARY E ---
[facility] Discharge Summary NAME: MIRA RUFFIN AGE: 67Y ADMITTED: 11/10/2017 DISCHARGED: 11/10/2017 HOSPITAL COURSE: This is a 67-year-old male who underwent cataract extraction of the right eye. DIAGNOSIS: CATARACT, RIGHT EYE. He underwent surgery because he was having difficulty with increased glare from headlights making it difficult to drive at night. DISCHARGE INSTRUCTIONS: He should be on a regular diet. No bending at his waist, no heavy lifting. He should use his Besivance, Ilevro, and Durezol at 3 p.m. and 8 p.m. and sleep with a rigid shield. I will see him for his 1 day postoperative tomorrow. DICTATING PHYSICIAN: AMINATA ROBLES M.D. [id number] PHY#: [id number] ID: [id number] JOB#: [id number] ACCT: [id number] cc:AMINATA ROBLES M.D. >
--- NOTE | 2017-11-10 15:06 | [facility] OPERATIVE REPORT E ---
[facility] Operative Report NAME: MIRA RUFFIN AGE: 67Y DATE OF SURGERY: 11/10/2017 ROOM: PREOPERATIVE DIAGNOSIS: CATARACT, RIGHT EYE. POSTOPERATIVE DIAGNOSIS: CATARACT, RIGHT EYE. OPERATION: Cataract extraction with intraocular lens implant of the right eye. SURGEON: AMINATA ROBLES M.D. ANESTHESIA: Topical. PROCEDURE: After obtaining appropriate consent, the patient's right eye was prepped and draped in sterile fashion as well as the surgeon in a sterile manner and cataract surgery was started. First a paracentesis blade was used to make a small side-port incision. Viscoelastic was used to inflate the anterior chamber. Next a 2.4 mm incision was made with the paracentesis blade. A continuous capsulorrhexis incision was made using a cystotome and Utrata forceps. Following this hydrodissection was carried out to make the lens fully loose and mobile and it was rotated 90 degrees. Following this, a hvekpa-snf-fpwvdjr technique was used to phacoemulsify the lens with a CDE of 5.02. The remaining cortex was removed with irrigation/aspiration. Provisc was instilled into the capsular bag to inflate the bag. A SN60WF, 16.0 diopter lens was placed. The remaining viscoelastic material was removed with irrigation/aspiration. Following this, the incision and it was found to be watertight. Vigamox was instilled in the eye and a protective shield was placed over the eye. The patient returned to the postoperative recovery in stable condition. DICTATING PHYSICIAN: AMINATA ROBLES M.D. 5020M 1500 PHY#: [id number] ID: [id number] JOB#: [id number] ACCT: [id number] cc:AMINATA ROBLES M.D. > MTDD
== END 2017-11-29 09:30 | disposition home or self-care (01) ==
LOC: SC 09:43
PROVIDERS: ATTEND Internal Medicine
DX: H25.813 Combined forms of age-related cataract, bilateral (principal); E11.9 Type 2 diabetes mellitus without complications; I10 Essential (primary) hypertension; J45.909 Unspecified asthma, uncomplicated; K21.9 Gastro-esophageal reflux disease without esophagitis; H40.023 Open angle with borderline findings, high risk, bilateral; H43.813 Vitreous degeneration, bilateral; M19.90 Unspecified osteoarthritis, unspecified site; G47.30 Sleep apnea, unspecified; Z79.82 Long term (current) use of aspirin; Z79.899 Other long term (current) drug therapy; Z79.84 Long term (current) use of oral hypoglycemic drugs; Z79.4 Long term (current) use of insulin; Z88.2 Allergy status to sulfonamides; Z79.1 Long term (current) use of non-steroidal anti-inflammatories (NSAID); I25.2 Old myocardial infarction
CPT/HCPCS: 66984; 82962; V2632; J2250; J3490 ×2; A9270; J0171; 142

== ENCOUNTER 2017-11-29 06:54 | Day surgery (SDC) | payer MEDICARE, OTHER ==
[~2017-11-29 06:54] MED LIST changes: -CHONDR SU A NA/HYALUR INTRAOC KIT (SURGICARE) ONE; -EPINEPHRINE INJ/PF 1 MG/1 ML AMPULE ONE; -KETOROLAC TROMETHAMINE 0.45% 4 DROP/0.4 ML DROPERETTE OD PRN; +KETOROLAC TROMETHAMINE 0.45% 4 DROP/0.4 ML DROPERETTE OS PRN; -LIDOCAINE 1% INJ-PF (10 MG/ML) 30 ML SDV ONE; -MIDAZOLAM 2 MG/2 ML INJ ONE
[2017-11-29] MEDS ORDERED: LIDOCAINE 1% INJ-PF (10 MG/ML) 30 ML SDV ONE (07:15)
[2017-11-29] MEDS ORDERED: CHONDR SU A NA/HYALUR INTRAOC KIT (SURGICARE) ONE (07:15)
[2017-11-29] MEDS ORDERED: EPINEPHRINE INJ/PF 1 MG/1 ML AMPULE ONE (07:15)
[2017-11-29] MEDS: TETRACAINE HCL 0.5% OPH SOLN 2 ML OS PRN ×3 (07:53→08:36)
[2017-11-29] MEDS: TROPICAMIDE 1% OPH SOLN 3 ML OS PRN ×3 (07:54→08:25)
[2017-11-29] MEDS: CYCLOPENTOLATE 0.2%/PHENYLEPHRINE 1% OPH SOLN 2 ML OS PRN ×3 (07:54→08:25)
[2017-11-29] MEDS: BESIFLOXACIN HCL 0.6% OPH SUSP 5 ML BOTTLE OS PRN ×3 (07:55→08:56)
[2017-11-29] MEDS ORDERED: MIDAZOLAM 2 MG/2 ML INJ ONE ×2 (08:25)
--- NOTE | 2017-11-29 14:48 | [facility] OPERATIVE REPORT E ---
[facility] Operative Report NAME: MIRA RUFFIN AGE: 67Y DATE OF SURGERY: 11/29/2017 ROOM: PREOPERATIVE DIAGNOSIS: CATARACT, LEFT EYE. POSTOPERATIVE DIAGNOSIS: CATARACT, LEFT EYE. OPERATION: Cataract extraction with insertion of an IOL of the left eye. SURGEON: AMINATA ROBLES M.D. ANESTHESIA: Topical. PROCEDURE: After obtaining appropriate consent, the patient's left eye was prepped and draped in sterile fashion as well as the surgeon in a sterile manner and cataract surgery was started. First a paracentesis blade was used to make a side-port incision. Viscoelastic was used to inflate the anterior chamber. Next a 2.4 mm incision was made with a 2.4 mm blade, clear corneal temporally. A continuous capsulorrhexis was made using a cystotome and Utrata forceps. Following this hydrodissection was carried out to make the lens fully loose and mobile and it was rotated 90 degrees. Following this, a mronci-swd-iswkqcc technique was used to phacoemulsify the lens with a CDE of 6.07. The remaining cortex was removed with irrigation/aspiration. Provisc was instilled into the capsular bag to inflate the bag. A SN60WF, 16.0 diopter lens was placed. The remaining viscoelastic material was removed with irrigation/aspiration. Following this, the incision was found to be watertight. Besivance was instilled into the eye and a protective shield was placed over the eye. The patient returned to the postoperative recovery in stable condition. DICTATING PHYSICIAN: AMINATA ROBLES M.D. 5233M 1446 PHY#: [id number] ID: [id number] JOB#: [id number] ACCT: [id number] cc:AMINATA ROBLES M.D. >
--- NOTE | 2017-11-29 14:50 | [facility] DISCHARGE SUMMARY E ---
[facility] Discharge Summary NAME: MIRA RUFFIN AGE: 67Y ADMITTED: 11/29/2017 DISCHARGED: 11/29/2017 FINAL DIAGNOSIS: Cataract, left eye. HOSPITAL COURSE: This is a 67-year-old male who underwent cataract extraction of the left eye. He underwent surgery because he was having difficulty reading road signs. DISCHARGE INSTRUCTIONS: He should be on a regular diet. No bending at his waist, no heavy lifting. He should use Besivance, Ilevro and Durezol at 3:00 p.m. and 8:00 p.m. Sleep with a rigid shield. I will see him for a 1-day postoperative tomorrow. DICTATING PHYSICIAN: AMINATA ROBLES M.D. 5233M 1447 PHY#: [id number] ID: [id number] JOB#: [id number] ACCT: [id number] cc:AMINATA ROBLES M.D. >
== END 2017-11-29 09:30 | disposition home or self-care (01) ==
LOC: SC 06:54
PROVIDERS: ATTEND Internal Medicine
DX: H25.812 Combined forms of age-related cataract, left eye (principal); Z96.1 Presence of intraocular lens; E11.9 Type 2 diabetes mellitus without complications; I10 Essential (primary) hypertension; K21.9 Gastro-esophageal reflux disease without esophagitis; Z79.84 Long term (current) use of oral hypoglycemic drugs; Z79.4 Long term (current) use of insulin; Z79.899 Other long term (current) drug therapy; Z88.2 Allergy status to sulfonamides; Z88.6 Allergy status to analgesic agent; Z88.8 Allergy status to other drugs, medicaments and biological substances; Z79.82 Long term (current) use of aspirin
CPT/HCPCS: 66984; 82962; V2632; J2250; J3490 ×2; A9270; J0171; 142

== ENCOUNTER → 2017-12-19 | Outpatient (CLI) | payer MEDICARE, OTHER ==
[2017-12-20 10:04] LABS: PROSTATE SPECIFIC ANTIGEN 6.5 ng/mL (0.0-4.0); PSA % FREE 3.8 % (.); PSA FREE 0.25 ng/mL
== END ==
LOC: OD 15:44
PROVIDERS: ATTEND Urology
DX: R97.20 Elevated prostate specific antigen [PSA] (principal)
CPT/HCPCS: 36415; 84154

== ENCOUNTER → 2018-06-12 | Outpatient (CLI) | payer MEDICARE, OTHER ==
--- NOTE | 2018-06-12 13:44 | RADIOLOGY REPORT (SQ) ---
EXAM DESCRIPTION: CHEST PA/LATERAL COMPLETED DATE/TIME: 06/12/2018 1:08 pm REASON FOR STUDY: DYSPNEA COMPARISON: 10/05/2013, 07/16/2008 chest films EXAM PARAMETERS: NUMBER OF VIEWS: two views TECHNIQUE: Digital Frontal and Lateral radiographic views of the chest acquired. RADIATION DOSE: NA LIMITATIONS: none FINDINGS: LUNGS AND PLEURA: Chronic scarring in the left lateral costophrenic sulcus. No acute infiltrates. No pleural effusion. No pneumothorax. MEDIASTINUM AND HILAR STRUCTURES: No masses or contour abnormalities. HEART AND VASCULAR STRUCTURES: Stable mild cardiomegaly BONES: No acute findings. HARDWARE: None in the chest. OTHER: No other significant finding. IMPRESSION: No acute findings. Left basilar scarring. Mild cardiomegaly TECHNICAL DOCUMENTATION: JOB ID: [id number] [employer]- All Rights Reserved Reading location - IP/workstation name: [email or web address]
== END ==
LOC: OD 12:55
PROVIDERS: ATTEND Physician Assistant Medical
DX: R06.00 Dyspnea, unspecified (principal)
CPT/HCPCS: 71046

== ENCOUNTER 2019-04-04 12:56 | Outpatient (CLI) | payer MEDICARE, OTHER ==
[~2019-04-04 12:56] MED LIST changes: +FERRIC CARBOXYMALTOSE 750 MG in NORMAL SALINE 250 ML IV PRN; -KETOROLAC TROMETHAMINE 0.45% 4 DROP/0.4 ML DROPERETTE OS PRN
[2019-04-04 13:04] VITALS: BP 168/71
== END 2019-04-04 14:05 | disposition home or self-care (01) ==
LOC: II 12:56 → 5TH 12:57 → II 14:05
PROVIDERS: ATTEND Internal Medicine
PROC: 3E033GC Introduction of Other Therapeutic Substance into Peripheral Vein, Percutaneous Approach (ICD-10-PCS; principal; 2019-04-04)
DX: D50.9 Iron deficiency anemia, unspecified (principal); D63.1 Anemia in chronic kidney disease; N18.9 Chronic kidney disease, unspecified
CPT/HCPCS: 96365; J7050; J1439; 96374

== ENCOUNTER 2019-04-11 12:41 | Outpatient (CLI) | payer MEDICARE, OTHER ==
[2019-04-11 13:15] VITALS: BP 142/68
== END 2019-04-11 13:32 | disposition home or self-care (01) ==
LOC: II 12:41 → 5TH 12:43 → II 13:32
PROVIDERS: ATTEND Internal Medicine
PROC: 3E033GC Introduction of Other Therapeutic Substance into Peripheral Vein, Percutaneous Approach (ICD-10-PCS; principal; 2019-04-11)
DX: D50.9 Iron deficiency anemia, unspecified (principal); D63.1 Anemia in chronic kidney disease
CPT/HCPCS: 96365; J7050; J1439

== ENCOUNTER → 2019-05-21 | Outpatient (CLI) | payer MEDICARE, OTHER ==
--- NOTE | 2019-05-21 16:00 | RADIOLOGY REPORT (SQ) ---
EXAM DESCRIPTION: KNEE RIGHT 2 VIEWS COMPLETED DATE/TIME: 05/21/2019 3:50 pm REASON FOR STUDY: PAIN IN RT KNEE M25.561 PAIN IN RIGHT KNEE COMPARISON: None. NUMBER OF VIEWS: Two views. TECHNIQUE: AP and lateral radiographic images acquired of the right knee. LIMITATIONS: None. FINDINGS: MINERALIZATION: Normal. BONES: No acute fracture or dislocation. No worrisome bone lesions. JOINT: No effusion. SOFT TISSUES: No soft tissue swelling. No radio-opaque foreign body. OTHER: No other significant finding. IMPRESSION: NEGATIVE STUDY OF THE RIGHT KNEE. NO RADIOGRAPHIC EVIDENCE OF ACUTE INJURY. TECHNICAL DOCUMENTATION: JOB ID: [id number] [employer] (acquired by [employer])- All Rights Reserved Reading location - IP/workstation name: [email or web address]
== END ==
LOC: OD 15:38
PROVIDERS: ATTEND Internal Medicine
DX: M25.561 Pain in right knee (principal)

== ENCOUNTER → 2019-06-11 | Outpatient (CLI) | payer MEDICARE, OTHER ==
--- NOTE | 2019-06-11 15:16 | RADIOLOGY REPORT (SQ) ---
EXAM DESCRIPTION: MRI RT LOWER JOINT WITHOUT COMPLETED DATE/TIME: 06/11/2019 1:53 pm REASON FOR STUDY: PAIN IN RIGHT KNEE (M25.561) M25.561 PAIN IN RIGHT KNEE COMPARISON: None. TECHNIQUE: Rightknee images acquired and stored on PACS. Multiplanar images include fat sensitive s equences as T1, water sensitive sequences as FST2 or STIR, cartilage sensitive sequences as FSPD, and gradient echo sequences. LIMITATIONS: Artifact associated with body habitus. FINDINGS: JOINT AND BURSAE: No effusion. BONE CORTEX AND MARROW: No alteration of signal to suggest marrow replacement. No worrisome bone lesi ons. No occult fracture. ACL: Intact. No degeneration or ganglion cyst. PCL: Intact. MCL: Intact. No periligamentous edema or fluid. LCL: Intact. No periligamentous edema or fluid. MEDIAL MENISCUS: Increased signal consistent with horizontal tear posterior horn medial meniscus. LATERAL MENISCUS: No tears. No abnormal signal. MEDIAL COMPARTMENT: Moderate osteoarthritis. No subchondral edema. LATERAL COMPARTMENT: Mild osteoarthritis. No subchondral edema. PATELLA: Moderate osteoarthritis. No subchondral edema. EXTENSOR MECHANISM: Intact. Quadriceps and patella tendons normal. SOFT TISSUES: Adjacent muscles and subcutaneous tissues normal. Normal flow void in popliteal artery and vein. OTHER: No other significant finding. IMPRESSION: 1. Horizontal tear posterior horn medial meniscus. 2. Osteoarthritis, more advanced in the medial and patellofemoral compartments. TECHNICAL DOCUMENTATION: JOB ID: [id number] [employer]- All Rights Reserved Reading location - IP/workstation name: [email or web address]
== END ==
LOC: RAD 12:32
PROVIDERS: ATTEND Internal Medicine
DX: M25.561 Pain in right knee (principal); M17.11 Unilateral primary osteoarthritis, right knee; S83.241A Other tear of medial meniscus, current injury, right knee, initial encounter; X58.XXXA Exposure to other specified factors, initial encounter

== ENCOUNTER → 2019-06-14 | Outpatient (CLI) | payer MEDICARE, OTHER ==
--- NOTE | 2019-06-14 15:07 | RADIOLOGY REPORT (SQ) ---
EXAM DESCRIPTION: CHEST PA/LATERAL COMPLETED DATE/TIME: 06/14/2019 2:53 pm REASON FOR STUDY: PRE OP COMPARISON: 06/12/2018. EXAM PARAMETERS: NUMBER OF VIEWS: two views TECHNIQUE: Digital Frontal and Lateral radiographic views of the chest acquired. RADIATION DOSE: NA LIMITATIONS: none FINDINGS: LUNGS AND PLEURA: Hyperinflation. Mild scarring in the lung bases. No infiltrates, marce s or pneumothorax. No pleural effusion. MEDIASTINUM AND HILAR STRUCTURES: No masses or contour abnormalities. HEART AND VASCULAR STRUCTURES: Heart normal size. No evidence for failure. BONES: No acute findings. HARDWARE: None in the chest. OTHER: No other significant finding. IMPRESSION: COPD. MILD SCARRING. NO ACUTE RADIOGRAPHIC FINDING IN THE CHEST. TECHNICAL DOCUMENTATION: JOB ID: [id number] [employer]- All Rights Reserved Reading location - IP/workstation name: [email or web address]
[2019-06-14 15:10] LABS: APPEARANCE,URINE SLIGHTLY-CLOUDY; BILIRUBIN,URINE NEGATIVE (NEGATIVE); GLUCOSE, URINE NEGATIVE (NEGATIVE); KETONES,URINE TRACE mg/dL (NEGATIVE); LEUKOCYTE ESTERASE,URINE TRACE (NEGATIVE); NITRITE,URINE NEGATIVE (NEGATIVE); PROTEIN,URINE 30 mg/dL (NEGATIVE); URINE SPECIFIC GRAVITY 1.018; UROBILINOGEN,URINE NEGATIVE mg/dL (<2.0)
[2019-06-14 15:15] LABS: COLOR,URINE YELLOW
[2019-06-14 15:20] LABS: ABSOLUTE MONOCYTES (AUTO) 0.8 10^3/uL (0.1-1.4); ABSOLUTE NEUT (AUTO) 5.2 10^3/uL (1.7-8.2); BASOPHILS % (AUTO) 0.6 % (0-2); EOSINOPHILS % (AUTO) 0.4 % (0-6); HEMATOCRIT 37.3 % (37.9-51.0); HEMOGLOBIN 11.9 g/dL (13.5-17.0); LYMPHOCYTES % (AUTO) 25.1 % (13-45); MEAN CORPUSCULAR HEMOGLOBIN 27.5 pg (27.0-33.4); MEAN CORPUSCULAR VOLUME 86 fl (80-97); MONOCYTES % (AUTO) 9.8 % (3-13); RED BLOOD COUNT 4.34 10^6/uL (4.35-5.55); RED CELL DISTRIBUTION WIDTH 20.7 % (11.5-14.0); SEGMENTED NEUTROPHILS % (AUTO) 64.1 % (42-78); TOTAL CELLS COUNTED % (AUTO) 100 %; WHITE BLOOD COUNT 8.1 10^3/uL (4.0-10.5)
[2019-06-14 15:35] LABS: ANION GAP 13 (5-19); BLOOD UREA NITROGEN 14 mg/dL (7-20); CALCIUM 9.4 mg/dL (8.4-10.2); CARBON DIOXIDE 29 mmol/L (22-30); CHLORIDE 100 mmol/L (98-107); GLUCOSE 87 mg/dL (75-110); POTASSIUM 3.8 mmol/L (3.6-5.0)
[2019-06-14 15:38] LABS: PLATELET COUNT 125 10^3/uL (150-450)
--- NOTE | 2019-06-14 17:04 | EKG REPORT ---
SEVERITY:- ABNORMAL ECG - SINUS RHYTHM FIRST DEGREE AV BLOCK BORDERLINE LEFT AXIS DEVIATION BORDERLINE R WAVE PROGRESSION, ANTERIOR LEADS : Confirmed by: Timbo Espino MD 14-Jun-2019 17:03:51
== END ==
LOC: OD 14:13
PROVIDERS: ATTEND Orthopaedic Surgery
DX: Z01.812 Encounter for preprocedural laboratory examination (principal); Z01.810 Encounter for preprocedural cardiovascular examination; Z01.811 Encounter for preprocedural respiratory examination; M17.11 Unilateral primary osteoarthritis, right knee; E11.9 Type 2 diabetes mellitus without complications; I10 Essential (primary) hypertension
CPT/HCPCS: 36415; 71046; 80048; 81001; 83036; 85025; 93005; 93010

== ENCOUNTER 2019-07-02 07:54 | Inpatient (IN) | payer MEDICARE, OTHER ==
[~2019-07-02 07:54] MED LIST changes: +CEFAZOLIN INJ 1 GM VIAL IV PRN; +CEFAZOLIN INJ 1 GM VIAL ONE; -FERRIC CARBOXYMALTOSE 750 MG in NORMAL SALINE 250 ML IV PRN; +LACTATED RINGERS 1000 ML IV PRN; +LIDOCAINE 0.5% INJ-PF (5 MG/ML) 50 ML SDV SUBCUT PRN; +MIDAZOLAM 2 MG/2 ML INJ ONE; +ONDANSETRON HCL INJ/PF 4 MG/2 ML SDV ONE; +OXYCODONE HCL SR 10 MG TABLET PO ONE; +OXYCODONE HCL SR 10 MG TABLET PO PRN; +PANTOPRAZOLE SODIUM 20 MG TABLET.DR PO ONE; +PANTOPRAZOLE SODIUM 20 MG TABLET.DR PO PRN; +PROPOFOL INJ 200 MG/20 ML VIAL IV ONE; +TRANEXAMIC ACID INJ/PF 1,000 MG/10 ML SDV ONE; +VANCOMYCIN HCL 1,000 MG in DEXTROSE 5%-WATER 250 ML IV PRN
[2019-07-02 09:22] LABS: ABSOLUTE LYMPHOCYTES (AUTO) 1.4 10^3/uL (0.5-4.7); ABSOLUTE MONOCYTES (AUTO) 0.7 10^3/uL (0.1-1.4); ABSOLUTE NEUT (AUTO) 4.8 10^3/uL (1.7-8.2); BASOPHILS % (AUTO) 0.4 % (0-2); EOSINOPHILS % (AUTO) 0.5 % (0-6); HEMATOCRIT 34.5 % (37.9-51.0); HEMOGLOBIN 11.5 g/dL (13.5-17.0); LYMPHOCYTES % (AUTO) 19.9 % (13-45); MEAN CORPUSCULAR HEMOGLOBIN 28.9 pg (27.0-33.4); MEAN CORPUSCULAR HGB CONC 33.4 g/dL (32.0-36.0); MEAN CORPUSCULAR VOLUME 87 fl (80-97); MONOCYTES % (AUTO) 9.9 % (3-13); PLATELET COUNT 136 10^3/uL (150-450); RED BLOOD COUNT 3.99 10^6/uL (4.35-5.55); RED CELL DISTRIBUTION WIDTH 18.8 % (11.5-14.0); SEGMENTED NEUTROPHILS % (AUTO) 69.3 % (42-78); TOTAL CELLS COUNTED % (AUTO) 100 %
[2019-07-02] MEDS ORDERED: BUPIVACAINE INJ/PF LIPOSOME/PF 266 MG/20 ML SDV ONE (10:16)
[2019-07-02] MEDS: BUPIVACAINE INJ/PF LIPOSOME/PF 266 MG/20 ML SDV INJ PRN ×2 (10:40→11:00)
[2019-07-02] MEDS ORDERED: MEPERIDINE HCL/PF INJ 25 MG/1 ML DISP.SYRIN IV PRN (11:00)
[2019-07-02] MEDS ORDERED: DIPHENHYDRAMINE HCL 50 MG/ML VIAL IV PRN ×2 (11:00→11:13)
[2019-07-02] MEDS ORDERED: PROMETHAZINE HCL INJ 25 MG/1 ML VIAL IV PRN (11:00)
[2019-07-02] MEDS ORDERED: MORPHINE SULFATE 10 MG/ML INJ IV PRN (11:00)
[2019-07-02] MEDS ORDERED: FENTANYL CITRATE INJ/PF 100 MCG/2 ML AMPUL IV PRN ×3 (11:00)
[2019-07-02] MEDS ORDERED: ONDANSETRON HCL INJ/PF 4 MG/2 ML SDV IV PRN (11:13)
[2019-07-02] MEDS ORDERED: RINGERS SOLUTION,LACTATED 1,000 ML IV PRN (11:13)
[2019-07-02] MEDS ORDERED: ACETAMINOPHEN 325 MG TABLET PO PRN (11:13)
[2019-07-02] MEDS ORDERED: ONDANSETRON 4 MG TAB.RAPDIS PO PRN (11:13)
[2019-07-02] MEDS ORDERED: ZOLPIDEM TARTRATE 5 MG TABLET PO PRN (11:13)
[2019-07-02] MEDS ORDERED: MAG HYDROX/AL HYDROX/SIMETH SUSP 30 ML UDCUP PO PRN (11:13)
--- NOTE | 2019-07-02 11:18 | Operative Report ---
Operative Report DATE OF SURGERY: 07/02/19 PREOPERATIVE DIAGNOSIS: Right knee arthritis OPERATION: Right knee arthroplasty SURGEON: TOBY YOUSIF ANESTHESIA: Spinal TISSUE REMOVED OR ALTERED: Bone to pathology ESTIMATED BLOOD LOSS: [place] 5 PROCEDURE: Implants used: Femur: Karen triathlon size 7 CR uncemented femur Tibia: 6 uncemented tibia Tibial liner: 9 mm CS insert Patella: 38 mm oval patella Procedure with the patient supine on the operating table the right the limb is prepped and draped in a sterile fashion. The limb was elevated for exsanguination and the tourniquet inflated to 280 torr. A standard midline median parapatellar approach the knee is taken. Access is gained to the femoral canal through the intercondylar notch. Intramedullary alignment instrumentation used to resect 10 mm of distal femur in 5 of valgus. Sizing guide indicated a size 7 femur. Appropriate cutting jig is then used to fashion anterior posterior and chamfer cuts. A trial reduction femurs performed and this is judged to be adequate. Attention was next turned to the tibia. Using an extra medullary alignment system 9 millimeters was resected off the lateral tibial plateau. This is sized to a size 6 tibia. A trial reduction was now performed with a 7 femur and a 6 tibia using a and millimeters spacer. It is full extension and central patellofemoral tracking. The articular surface the patella was next resected using an oscillating saw. All trial implants were removed. Above implants are impacted into position. The wound is copiously irrigated with pulse lavage using normal saline containing Betadine. The tourniquet was deflated hemostasis obtained the wound is then closed in layers using interrupted Vicryl followed by hilda. A sterile compressive dressing was applied and the patient returned to recovery room in satisfactory condition.
[2019-07-02] MEDS ORDERED: TRANEXAMIC ACID INJ/PF 1,000 MG/10 ML SDV ONE (11:29)
[2019-07-02] MEDS ORDERED: PROPOFOL INJ 200 MG/20 ML VIAL IV ONE (11:43)
[2019-07-02] MEDS ORDERED: TRANEXAMIC ACID INJ/PF 1,000 MG/10 ML SDV IV ONE (12:00)
[2019-07-02] MEDS ORDERED: DEXTROSE 40% GEL 15 GM TUBE PO PRN (13:00)
[2019-07-02] MEDS ORDERED: DEXTROSE 40% GEL 15 GM TUBE X 2 PO PRN (13:00)
[2019-07-02] MEDS ORDERED: DEXTROSE 50%-WATER SYRINGE 25 GM/50 ML DOSE IV PRN (13:00)
[2019-07-02] MEDS ORDERED: GLUCAGON,HUMAN RECOMB 1 MG INJ IM PRN (13:00)
[2019-07-02] MEDS ORDERED: DEXTROSE 50%-WATER SYRINGE 12.5 GM/25 ML DOSE IV PRN (13:00)
[2019-07-02] MEDS ORDERED: OXYCODONE HCL SR 10 MG TABLET PO ONE (13:43)
--- NOTE | 2019-07-02 13:52 | RADIOLOGY REPORT (SQ) ---
EXAM DESCRIPTION: KNEE RIGHT 2 VIEWS COMPLETED DATE/TIME: 07/02/2019 1:44 pm REASON FOR STUDY: POSTOP EVALUATION M17.11 UNILATERAL PRIMARY OSTEOARTHRITIS, RIGHT KNEE COMPARISON: None. NUMBER OF VIEWS: Two views. TECHNIQUE: AP and lateral radiographic images acquired of the right knee. LIMITATIONS: None. FINDINGS: Postoperative images show a right knee arthroplasty in good position. IMPRESSION: Right knee arthroplasty. Refer to operative note for further information. TECHNICAL DOCUMENTATION: JOB ID: [id number] [employer]- All Rights Reserved Reading location - IP/workstation name: [email or web address]
[2019-07-02] MEDS ORDERED: IBUPROFEN 800 MG in NORMAL SALINE 250 ML IV SCH (14:00)
[2019-07-02] MEDS ORDERED: ONDANSETRON HCL INJ/PF 4 MG/2 ML SDV ONE (14:01)
[2019-07-02] MEDS: INSULIN LISPRO 100 UNIT/ML 3 ML VIAL SUBCUT SCH ×2 (17:28→23:00)
[2019-07-02] MEDS: GABAPENTIN 400 MG CAPSULE PO SCH ×2 (18:05→22:00)
[2019-07-02] MEDS: SENNOSIDES/DOCUSATE 8.6-50 MG 1 EACH TABLET PO SCH (18:05)
[2019-07-02] MEDS: OXYCODONE HCL IR 5 MG TABLET PO PRN (18:05)
[2019-07-02] MEDS ORDERED: MONTELUKAST SODIUM 10 MG TABLET PO SCH (22:00)
[2019-07-02] MEDS ORDERED: INSULIN GLARGINE,HUM.REC.ANLOG 1,000 UNIT/10 ML VIAL SUBCUT SCH (22:00)
[2019-07-02] MEDS: OXYCODONE HCL SR 10 MG TABLET PO SCH (22:58)
[2019-07-02] MEDS: LABETALOL HCL 200 MG TABLET PO SCH (22:59)
[2019-07-02] MEDS ORDERED: VANCOMYCIN HCL 1,000 MG in DEXTROSE 5%-WATER 250 ML IV ONE (23:00)
[2019-07-03 05:05] LABS: HEMATOCRIT 31.9 % (37.9-51.0); HEMOGLOBIN 10.6 g/dL (13.5-17.0); MEAN CORPUSCULAR HEMOGLOBIN 28.7 pg (27.0-33.4); MEAN CORPUSCULAR HGB CONC 33.4 g/dL (32.0-36.0); MEAN CORPUSCULAR VOLUME 86 fl (80-97); PLATELET COUNT 123 10^3/uL (150-450)
[2019-07-03 05:52] LABS: ANION GAP 10 (5-19); BLOOD UREA NITROGEN 16 mg/dL (7-20); CALCIUM 8.7 mg/dL (8.4-10.2); CARBON DIOXIDE 29 mmol/L (22-30); CHLORIDE 99 mmol/L (98-107); GLUCOSE 169 mg/dL (75-110); POTASSIUM 3.9 mmol/L (3.6-5.0)
[2019-07-03] MEDS ORDERED: PANTOPRAZOLE SODIUM 40 MG TABLET.DR PO SCH (06:00)
[2019-07-03] MEDS: GABAPENTIN 400 MG CAPSULE PO SCH ×2 (06:20→12:59)
[2019-07-03] MEDS: OXYCODONE HCL IR 5 MG TABLET PO PRN (06:21)
--- NOTE | 2019-07-03 06:55 | PDOC DISCHARGE SUMMARY ---
Impression - Admit/DC Date/PCP Admission Date/Primary Care Provider: 07/02/19 07:54 WILSON BURROWS MD Discharge Date: 07/03/19 - Additional Information Resuscitation Status: Full Code Discharge Diet: Regular Discharge Activity: Balance Activity w/Rest, No tub bath Referrals: TOBY GASTELUM MD [ACTIVE STAFF] - 07/17/19 3:45 pm Home Medications: Insulin Glargine,Hum.rec.anlog [Lantus] 50 unit SQ QHS 10/05/13 Tamsulosin HCl [Flomax 0.4 mg Cap.sr] 0.4 mg PO DAILY 10/05/13 Ezetimibe [Zetia] 10 mg PO DAILY 10/07/16 Montelukast Sodium [Singulair 10 mg Tablet] 10 mg PO QHS 10/07/16 Pantoprazole Sodium [Protonix] 40 mg PO DAILY 03/31/17 Exenatide Microspheres [Bydureon Pen] 2 mg SQ .WEEKLY 11/07/17 Aspirin [Ecotrin 81 mg EC Tablet] 81 mg PO DAILY 07/02/19 Atorvastatin Calcium [Lipitor 80 mg Tablet] 80 mg PO QHS 07/02/19 Gabapentin [Neurontin 400 mg Capsule] 400 mg PO Q6 07/02/19 Labetalol HCl [Normodyne 200 mg Tablet] 200 mg PO DAILY 07/02/19 Losartan/Hydrochlorothiazide [Hyzaar 100-25 Tablet] 1 each PO DAILY 07/02/19 Nifedipine [Adalat CC 90 mg Tablet] 90 mg PO DAILY 07/02/19 Ranolazine [Ranexa 500 mg Tab.sr] 500 mg PO Q12 07/02/19 Sitagliptin Phos/Metformin HCl [Janumet Xr 100-1,000 mg Tablet] 1 each PO DAILY 07/02/19 History of Present Illiness History of Present Illness: MIRA RUFFIN JR is a 68 year old male Patient is a 68-year-old black male with progressive right knee pain and functional disability secondary osteoarthritis. Patient is admitted for elective right knee arthroplasty. Hospital Course Hospital Course: Patient is admitted through the operating where he undergoes uncomplicated right knee arthroplasty. Is returned to the floor and is seen by physical therapy. He ambulates 60 feet with physical therapy on the day of surgery. Compressive dressing is removed on the first postoperative morning. Underlying OpSite dressings clean dry and intact. Minimal pedal edema. Distal neurovascular examination is intact. Physical Exam Vital Signs: Temp Pulse Resp BP Pulse Ox 37.2 C 65 19 156/57 H 97 07/02/19 22:15 07/03/19 05:25 07/03/19 05:25 07/03/19 05:25 07/03/19 05:25 Intake & Output 07/01/19 07/02/19 07/03/19 06:59 06:59 06:59 Intake Total 2310 Output Total 1775 Balance 535 Weight 132.1 kg General appearance: PRESENT: no acute distress, well-developed, well-nourished Head exam: PRESENT: normocephalic Respiratory exam: PRESENT: unlabored Cardiovascular exam: PRESENT: RRR Pulses: PRESENT: +1 pedal pulses bilateral GI/Abdominal exam: PRESENT: soft Rectal exam: PRESENT: deferred Musculoskeletal exam: PRESENT: other - Right knee OpSite dressing is clean dry and intact. Minimal pedal edema. Distal neurovascular semination is intact. Neurological exam: PRESENT: alert, awake, oriented to person, oriented to place, oriented to time, oriented to situation. ABSENT: motor sensory deficit Psychiatric exam: PRESENT: appropriate affect, normal mood. ABSENT: homicidal ideation, suicidal ideation Skin exam: PRESENT: dry, intact, warm. ABSENT: cyanosis, rash Results Laboratory Results: WBC 14.0 10^3/uL (4.0-10.5) H 07/03/19 03:55 RBC 3.70 10^6/uL (4.35-5.55) L 07/03/19 03:55 Hgb 10.6 g/dL (13.5-17.0) L 07/03/19 03:55 Hct 31.9 % (37.9-51.0) L 07/03/19 03:55 MCV 86 fl (80-97) 07/03/19 03:55 MCH 28.7 pg (27.0-33.4) 07/03/19 03:55 MCHC 33.4 g/dL (32.0-36.0) 07/03/19 03:55 RDW 19.0 % (11.5-14.0) H 07/03/19 03:55 Plt Count 123 10^3/uL (150-450) L 07/03/19 03:55 Lymph % (Auto) 19.9 % (13-45) 07/02/19 09:00 [place] % (Auto) 9.9 % (3-13) 07/02/19 09:00 Eos % (Auto) 0.5 % (0-6) 07/02/19 09:00 Baso % (Auto) 0.4 % (0-2) 07/02/19 09:00 Absolute Neuts (auto) 4.8 10^3/uL (1.7-8.2) 07/02/19 09:00 Absolute Lymphs (auto) 1.4 10^3/uL (0.5-4.7) 07/02/19 09:00 Absolute Monos (auto) 0.7 10^3/uL (0.1-1.4) 07/02/19 09:00 Absolute Eos (auto) 0.0 10^3/uL (0.0-0.6) 07/02/19 09:00 Absolute Basos (auto) 0.0 10^3/uL (0.0-0.2) 07/02/19 09:00 Seg Neutrophils % 69.3 % (42-78) 07/02/19 09:00 Sodium 137.9 mmol/L (137-145) 07/03/19 03:55 Potassium 3.9 mmol/L (3.6-5.0) 07/03/19 03:55 Chloride 99 mmol/L (98-107) 07/03/19 03:55 Carbon Dioxide 29 mmol/L (22-30) 07/03/19 03:55 Anion Gap 10 (5-19) 07/03/19 03:55 BUN 16 mg/dL (7-20) 07/03/19 03:55 Creatinine 1.12 mg/dL (0.52-1.25) 07/03/19 03:55 Est GFR ( Amer) > 60 (>60) 07/03/19 03:55 Est GFR (MDRD) Non-Af > 60 (>60) 07/03/19 03:55 Glucose 169 mg/dL (75-110) H 07/03/19 03:55 POC Glucose 175 mg/dL (70-110) H 07/03/19 06:24 Calcium 8.7 mg/dL (8.4-10.2) 07/03/19 03:55 Impressions: Knee X-Ray 07/02/19 00:00 IMPRESSION: Right knee arthroplasty. Refer to operative note for further information. Plan Plan of Treatment: Patient to be discharged home on a weightbearing as tolerated basis. Patient be supported with home health services and DME. Follow-up with Dr. Gastelum and [facility] for surgery in 2 weeks for staple removal. Time Spent: Less than 30 Minutes Stroke Is this a Stroke Patient?: No Stroke Pt being discharged on Anti-thrombolytic therapy?: Yes Acute Heart Failure - Is this a Heart Failure Patient?: No
[2019-07-03] MEDS: INSULIN LISPRO 100 UNIT/ML 3 ML VIAL SUBCUT SCH ×2 (08:00→12:34)
[2019-07-03] MEDS: OXYCODONE HCL SR 10 MG TABLET PO SCH (09:22)
[2019-07-03] MEDS: SENNOSIDES/DOCUSATE 8.6-50 MG 1 EACH TABLET PO SCH (09:24)
[2019-07-03 09:33] VITALS: BP 157/70
[2019-07-03] MEDS: LABETALOL HCL 200 MG TABLET PO SCH (09:33)
[2019-07-03] MEDS ORDERED: (PENDING PHARMACY ID) (Losartan/Hydrochlorothiazide [Losartan-Hctz 100-25 Mg Tab] 1 TAB) PO SCH (10:00)
[2019-07-03] MEDS ORDERED: TAMSULOSIN HCL 0.4 MG CAP.SR.24H PO SCH (10:00)
[2019-07-03] MEDS ORDERED: EZETIMIBE 10 MG TABLET PO SCH (10:00)
[2019-07-03] MEDS ORDERED: HYDROCHLOROTHIAZIDE 25 MG TABLET PO SCH (10:00)
[2019-07-03] MEDS ORDERED: NIFEDIPINE 30 MG TAB.ER.24 PO SCH (10:00)
[2019-07-03] MEDS ORDERED: SITAGLIPTIN PHOSPHATE 50 MG TABLET PO SCH (10:00)
[2019-07-03] MEDS ORDERED: ASPIRIN 81 MG TABLET, CHEWABLE PO SCH (10:00)
[2019-07-03] MEDS ORDERED: PRENATAL VITAMIN W DHA CAPSULE PO SCH (10:00)
[2019-07-03] MEDS ORDERED: (PENDING PHARMACY ID) (Nifedipine [Nifedipine Er] 90 MG) PO SCH (10:00)
[2019-07-03] MEDS ORDERED: LOSARTAN POTASSIUM 50 MG TABLET PO SCH (10:00)
[2019-07-03] MEDS ORDERED: PANTOPRAZOLE SODIUM 40 MG PACKET.DR PO SCH (10:00)
[2019-07-03] MEDS ORDERED: ATORVASTATIN CALCIUM 80 MG TABLET PO SCH (22:00)
== END 2019-07-03 13:17 | disposition home health service (06) | DRG 470 ==
LOC: INOR 07:54 → 4N 15:14
PROVIDERS: ADMIT Orthopaedic Surgery; ATTEND Orthopaedic Surgery
PROC: 0SRC0JZ Replacement of Right Knee Joint with Synthetic Substitute, Open Approach (ICD-10-PCS; principal; 2019-07-02 09:45)
DX: M17.11 Unilateral primary osteoarthritis, right knee (principal); I10 Essential (primary) hypertension; E11.8 Type 2 diabetes mellitus with unspecified complications; I51.9 Heart disease, unspecified; G47.30 Sleep apnea, unspecified; F41.8 Other specified anxiety disorders; Z79.84 Long term (current) use of oral hypoglycemic drugs; Z79.82 Long term (current) use of aspirin; Z79.4 Long term (current) use of insulin; Z79.899 Other long term (current) drug therapy
CPT/HCPCS: 01402; 36415; 80048; 82962; 84132; 85025; 85027; 88305; 88311; 94660; C1776; C9290; J0690; J1815; J2250; J2405; J2704; J3370; J3490; J7060